=== PATIENT | female | born 1955 | race Caucasian/White ===

== ENCOUNTER → 2020-11-04 | Outpatient (CLI) | payer MEDICARE, MEDICAID ==
[~2020-11-04] MED LIST: ALBU90AE IH; ATOR10TA PO; CLOT15CR6 TP; DILT300C45 PO; DOCU-131 PO; DULO60CA7 PO; FERR325T18 PO; FLUO20CA19 PO; GABA600T7 PO; HYDR-3237 PO; HYDR-3245 PO; HYDR2TAB29 PO; LANS15CA60 PO; LEVE750T37 PO; LEVO100T5 PO; LEVO88TA4 PO; LOSA25TA25 PO; LOSA50TA14 PO; METO5TAB2 PO; MISO100T7 PO; NITR100C56 PO; NORT75CA PO; NYST60PO TP; OMEP40CA42 PO; ONDA4TAB7 PO; OXCA600T3 PO; OXYC-302 PO; PRAZ5CAP2 PO; SITA100T PO; SUCR1TAB PO; TOLT4CAP PO; TOPI100T8 PO
[2020-11-04 16:20] LABS: ALANINE AMINOTRANSFERASE 27 U/L (12-78); ALBUMIN 3.5 g/dL (3.4-5.0); ANION GAP 5 mmol/L (5-15); CALCIUM 8.9 mg/dL (8.5-10.1); CHLORIDE 110 mmol/L (98-107); CREATININE 0.73 mg/dL (0.55-1.02)
[2020-11-04 16:22] LABS: ALKALINE PHOSPHATASE 102 U/L (45-117); BILIRUBIN,TOTAL 0.2 mg/dL (0.2-1.0); TOTAL PROTEIN 7.2 g/dL (6.4-8.2)
== END | disposition home or self-care (01) ==
LOC: STAR 14:15
PROVIDERS: ATTEND Orthopaedic Surgery Hand Surgery
DX: Z01.818 Encounter for other preprocedural examination (principal); M65.321 Trigger finger, right index finger; M65.341 Trigger finger, right ring finger; M65.351 Trigger finger, right little finger; M65.331 Trigger finger, right middle finger; Z20.828 Contact with and (suspected) exposure to other viral communicable diseases
CPT/HCPCS: 80053; 87635; 93005

== ENCOUNTER 2020-11-10 06:17 | Day surgery (SDC) | payer MEDICARE, MEDICAID ==
[~2020-11-10] VITALS: Ht 167.6 cm; Wt 87.7 kg
[2020-11-10] MEDS ORDERED: BUPIVACAINE/PF 0.5% ONE (06:30)
[2020-11-10] MEDS ORDERED: LIDOCAINE 1%, 20ML ONE (06:30)
[2020-11-10 06:44] VITALS: BP 148/91
[2020-11-10] MEDS ORDERED: CHLORHEXIDINE 15 ML UDC MM ONE (07:00)
[2020-11-10] MEDS ORDERED: LACTATED RINGERS 1,000 ML IV SCH (07:00)
[2020-11-10] MEDS ORDERED: MIDAZOLAM 1 MG/ML, 2ML ONE (08:04)
[2020-11-10] MEDS ORDERED: FENTANYL PF 250 MCG/5ML ONE (08:04)
[2020-11-10] MEDS ORDERED: VANCOMYCIN 1,000 MG ONE (08:41)
[2020-11-10] MEDS ORDERED: PROPOFOL 10 MG/ML, 20ML ONE (08:54)
[2020-11-10] MEDS ORDERED: HYDROmorphone 1 MG/ML, 1ML INJ IVPush PRN (09:00)
[2020-11-10] MEDS ORDERED: OXYcodone 5 MG/5 ML ORAL.SOL UDC PO PRN (09:00)
[2020-11-10] MEDS ORDERED: hydrALAzine 20 MG/ML, 1ML IV PRN (09:00)
[2020-11-10] MEDS ORDERED: ACETAMINOPHEN 325 MG TABLET PO PRN (09:00)
[2020-11-10] MEDS ORDERED: PROMETHAZINE 25 MG/ML, 1ML IVPush PRN (09:00)
[2020-11-10] MEDS ORDERED: morphine SULFATE 10 MG/ML, 1ML IVPush PRN (09:00)
[2020-11-10] MEDS ORDERED: LABETALOL 5MG/ML, 20ML IV PRN (09:00)
[2020-11-10] MEDS ORDERED: HALOPERIDOL 5 MG/ML IV PRN (09:00)
[2020-11-10] MEDS ORDERED: FENTANYL PF 100 MCG/2ML IV PRN (09:00)
[2020-11-10] MEDS ORDERED: LORazepam 2 MG/ML, 1ML ONE (09:47)
[2020-11-10] MEDS ORDERED: DIAZEPAM 5 MG/ML, 2ML ONE (09:48)
[2020-11-10] MEDS ORDERED: DIAZEPAM 5 MG/ML, 2ML IV PRN (10:00)
[2020-11-10] MEDS ORDERED: LEVETIRACETAM 500 MG TABLET PO ONE (10:30)
[2020-11-10] MEDS ORDERED: hydrALAzine 20 MG/ML, 1ML ONE (10:39)
[2020-11-10] MEDS ORDERED: FENTANYL PF 100 MCG/2ML ONE (11:05)
[2020-11-10] MEDS ORDERED: ACETAMINOPHEN 650 MG/20.3 ML UDC ONE (11:05)
[2020-11-10] MEDS ORDERED: OXYcodone 5 MG/5 ML ORAL.SOL UDC ONE (11:05)
== END 2020-11-10 13:15 | disposition home or self-care (01) ==
LOC: OUT 06:17
PROVIDERS: ATTEND Orthopaedic Surgery Hand Surgery
DX: M65.321 Trigger finger, right index finger (principal); M65.331 Trigger finger, right middle finger; M65.341 Trigger finger, right ring finger; M65.351 Trigger finger, right little finger; L51.1 Stevens-Johnson syndrome; E11.9 Type 2 diabetes mellitus without complications; I10 Essential (primary) hypertension; E78.5 Hyperlipidemia, unspecified; K21.9 Gastro-esophageal reflux disease without esophagitis; J45.909 Unspecified asthma, uncomplicated; G40.909 Epilepsy, unspecified, not intractable, without status epilepticus; Z79.84 Long term (current) use of oral hypoglycemic drugs; Z79.890 Hormone replacement therapy; Z79.891 Long term (current) use of opiate analgesic; Z79.899 Other long term (current) drug therapy; Z88.0 Allergy status to penicillin; Z88.8 Allergy status to other drugs, medicaments and biological substances; Z91.018 Allergy to other foods
CPT/HCPCS: 26055; 82962; J0360; J2250; J2704; J3010; J3360; J3370; J7120

== ENCOUNTER 2020-11-10 21:35 | Emergency (ER) | payer MEDICARE, MEDICAID ==
[~2020-11-10] VITALS: Ht 167.6 cm; Wt 87.5 kg
[~2020-11-10 21:35] MED LIST changes: -HYDR-3245 PO; +HYDR1TAB53 PO; -OXYC-302 PO; +OXYC1TAB14 PO
--- NOTE | 2020-11-10 21:44 | NUR ---
Patient comes in with complaints of face being red/ swollen and "burning", itching all over. Pt had surgery today for trigger finger. Has hx Darren- Feliciano syndrome. Was given Vanco during the the procdure, had 2 seizure in post op. (history of Epilepsy) Took her first dose of Keflex at 650pm and then started with all the reddness. EMS gave Benedryl 25, Fentyal 100
[2020-11-10] MEDS ORDERED: FAMOTIDINE 20 MG TABLET PO ONE (22:30)
[2020-11-10] MEDS ORDERED: DIPHENHYDRAMINE 25 MG CAPSULE PO ONE (22:30)
[2020-11-10] MEDS ORDERED: DIPHENHYDRAMINE 25 MG CAPSULE ONE (22:32)
[2020-11-10] MEDS ORDERED: FAMOTIDINE 20 MG TABLET ONE (22:32)
[2020-11-10] MEDS ORDERED: ONDANSETRON 2MG/ML, 2ML ONE (22:43)
[2020-11-10] MEDS ORDERED: MORPHINE SULFATE 4 MG/ML, 1ML ONE ×2 (22:44→23:16)
[2020-11-10] MEDS: MORPHINE SULFATE 4 MG/ML, 1ML IVPush PRN ×2 (22:46→23:19)
[2020-11-10] MEDS ORDERED: ONDANSETRON 2MG/ML, 2ML IVPush ONE (23:00)
[2020-11-10 23:26] LABS: BASOPHILS % (AUTO) 1 % (0-1); EOSINOPHILS % (AUTO) 2 % (1-7); LYMPHOCYTES % (AUTO) 16 % (22-44); MEAN CORPUSCULAR HEMOGLOBIN 29.1 pg (27.0-34.8); MEAN CORPUSCULAR HGB CONC 33.1 g/dL (32.4-35.8); MEAN PLATELET VOLUME 7.6 fL (7.4-10.4); MONOCYTES % (AUTO) 8 % (2-9); NEUTROPHILS % (AUTO) 74 % (42-75); PLATELET COUNT 255 x10^3/uL (130-400); RED BLOOD COUNT 4.96 x10^6/uL (3.82-5.3); RED CELL DISTRIBUTION WIDTH 14.2 % (9.6-15.2)
[2020-11-10 23:27] LABS: MD NO
[2020-11-10 23:39] LABS: ALBUMIN 3.5 g/dL (3.4-5.0); ANION GAP 5 mmol/L (5-15); CHLORIDE 108 mmol/L (98-107)
[2020-11-10 23:40] LABS: CREATININE 0.71 mg/dL (0.55-1.02)
--- NOTE | 2020-11-11 00:54 | NUR ---
BREAK RN: PT PROVIDED ICE PACKS FOR COMFORT, NAD, RESTING ON GURNEY, NO CHANGE IN CONDITION, APPEARS SLIGHTLY UNCOMFORTABLE, DENIES ADDITIONAL NEEDS AT THIS TIME. WCAYAAN.
--- NOTE | 2020-11-11 01:45 | NUR ---
Patient reddness noted to be brighten around mouth area. Bottom lip is more swollen. Provider aware
--- NOTE | 2020-11-11 01:51 | NUR ---
Patient moved to hospital bed for comfort d/t patient being observed til morning. Patient VSS, call light within reach
[2020-11-11] MEDS ORDERED: OXYcodone IR 5MG TABLET ONE (01:54)
[2020-11-11] MEDS ORDERED: OXYcodone IR 5MG TABLET PO ONE (02:00)
[2020-11-11 03:06] VITALS: BP 101/46
--- NOTE | 2020-11-11 04:16 | NUR ---
PT MOVED TO ROOM 15 AT THIS TIME
--- NOTE | 2020-11-11 04:37 | NUR ---
Patient/Caregiver given discharge instructions and they have confirmed that they understand the instructions. Patient ambulatory with steady gait.
--- NOTE | 2020-11-11 04:47 | NUR ---
Patient/Caregiver given discharge instructions and they have confirmed that they understand the instructions. Patient ambulatory with steady gait.
[2020-12-04] MEDS ORDERED: PRED50TA PO (12:14)
[2020-12-04] MEDS ORDERED: NYST1000 PO (12:14)
== END 2020-11-11 04:48 | disposition home or self-care (01) ==
LOC: ED 21:37
DX: T78.3XXA Angioneurotic edema, initial encounter (principal); J45.909 Unspecified asthma, uncomplicated; E03.9 Hypothyroidism, unspecified; G43.909 Migraine, unspecified, not intractable, without status migrainosus; E11.9 Type 2 diabetes mellitus without complications; Z90.49 Acquired absence of other specified parts of digestive tract; Z90.89 Acquired absence of other organs; Z90.710 Acquired absence of both cervix and uterus; Z87.11 Personal history of peptic ulcer disease; Z88.6 Allergy status to analgesic agent; Z88.1 Allergy status to other antibiotic agents; Z88.2 Allergy status to sulfonamides; Z88.8 Allergy status to other drugs, medicaments and biological substances; Z88.0 Allergy status to penicillin
CPT/HCPCS: 36415; 80048; 82040; 85025; 96374; 96375; 96376; 99285; J2405; J2270; Q0163

== ENCOUNTER 2020-11-21 12:47 | Emergency (ER) | payer MEDICARE, MEDICAID ==
[~2020-11-21] VITALS: Ht 167.6 cm; Wt 86.4 kg
[~2020-11-21 12:47] MED LIST changes: +HYDR-3245 PO; -HYDR1TAB53 PO
[2020-11-21 14:37] LABS: BASOPHILS % (AUTO) 0 % (0-1); EOSINOPHILS % (AUTO) 0 % (1-7); LYMPHOCYTES % (AUTO) 10 % (22-44); MEAN CORPUSCULAR HEMOGLOBIN 29.5 pg (27.0-34.8); MEAN CORPUSCULAR HGB CONC 33.7 g/dL (32.4-35.8); MEAN PLATELET VOLUME 7.2 fL (7.4-10.4); MONOCYTES % (AUTO) 2 % (2-9); NEUTROPHILS % (AUTO) 87 % (42-75); PLATELET COUNT 335 x10^3/uL (130-400); RED CELL DISTRIBUTION WIDTH 13.5 % (9.6-15.2)
[2020-11-21 14:38] LABS: MD NO
[2020-11-21 14:40] LABS: ALBUMIN 3.3 g/dL (3.4-5.0); ANION GAP 6 mmol/L (5-15); CALCIUM 8.5 mg/dL (8.5-10.1); CHLORIDE 98 mmol/L (98-107); CREATININE 0.82 mg/dL (0.55-1.02)
--- NOTE | 2020-11-21 16:19 | NUR ---
Pt presents after right hand sx. States that her pain, swelling and movement were all improving post surgery until 8 hours prior to arrival at the ER when pain became worse, swelling increased and movement decreased. Pt has remained connected to BP and O2 monitors. VSS. MORRIS. Call light in reach for the duration of time in ER.
--- NOTE | 2020-11-21 16:22 | NUR ---
Pt ambulatory to bathroom with steady gait at this time.
--- NOTE | 2020-11-21 16:54 | NUR ---
Working to obtain IV access. Avoiding R arm because infection is on R hand. This RN tried twice, Linda CONNELLY to try again.
[2020-11-21] MEDS ORDERED: EPINEPHRINE 1 MG/ML, 1ML IM PRN (17:00)
[2020-11-21] MEDS ORDERED: DIPHENHYDRAMINE 50 MG/ML, 1ML IVPush PRN (17:00)
[2020-11-21] MEDS ORDERED: CEFTRIAXONE PMX 1GM/50ML 50 ML IVPB ONE (17:00)
[2020-11-21] MEDS ORDERED: CEFTRIAXONE 1,000 MG in SODIUM CHLORIDE 0.9% 50 ML IVPB ONE (17:30)
[2020-11-21] MEDS ORDERED: CEFTRIAXONE 1,000 MG in SODIUM CHLORIDE 0.9% 50 ML IVPB SCH (17:30)
[2020-11-21] MEDS ORDERED: MORPHINE SULFATE 4 MG/ML, 1ML ONE ×2 (17:46→18:31)
[2020-11-21] MEDS ORDERED: ONDANSETRON 2MG/ML, 2ML ONE (17:46)
[2020-11-21] MEDS: MORPHINE SULFATE 4 MG/ML, 1ML IVPush PRN ×2 (17:48→18:32)
[2020-11-21] MEDS ORDERED: EPINEPHRINE 1 MG/ML, 1ML ONE (18:00)
[2020-11-21] MEDS ORDERED: DIPHENHYDRAMINE 50 MG/ML, 1ML ONE (18:00)
[2020-11-21] MEDS ORDERED: ONDANSETRON 2MG/ML, 2ML IVPush ONE (18:00)
--- NOTE | 2020-11-21 18:28 | NUR ---
Pt was connected to wood treating inspector as well as other monitors already in place prior to abx admin. Pt had call light in reach while abx was infusing and educated to call if any s/sx of allergic reaction happened or if anything concerning. Pt c/o itchiness after abx finished infusing, medicated with Benadryl with immediate stated relief.
[2020-11-21 18:53] VITALS: BP 157/92
--- NOTE | 2020-11-21 19:03 | NUR ---
Pt educated not to take her home pain medications tonight as she was medicated with morphine in the ER.
== END 2020-11-21 19:00 | disposition home or self-care (01) ==
LOC: ED 14:56
DX: L76.82 Other postprocedural complications of skin and subcutaneous tissue (principal); L03.113 Cellulitis of right upper limb; I10 Essential (primary) hypertension; J45.909 Unspecified asthma, uncomplicated; E03.9 Hypothyroidism, unspecified; Z87.11 Personal history of peptic ulcer disease; Z90.89 Acquired absence of other organs; Z90.49 Acquired absence of other specified parts of digestive tract; Z90.710 Acquired absence of both cervix and uterus; Z88.0 Allergy status to penicillin; Z88.5 Allergy status to narcotic agent; Z88.8 Allergy status to other drugs, medicaments and biological substances; Z88.6 Allergy status to analgesic agent; Z88.1 Allergy status to other antibiotic agents
CPT/HCPCS: 36415; 73130; 80048; 82040; 83605; 84145; 85025; 96365; 96375; 96376; 99285; J0696; J1200; J2270; J2405